=== PATIENT | female | born 1990 | race Caucasian/White ===

== ENCOUNTER 2018-11-14 23:05 | Emergency (ER) | payer OTHER ==
[~2018-11-14] VITALS: Ht 170.2 cm; Wt 111.1 kg
[~2018-11-14 23:05] MED LIST: AZIT500 PO; BCP'S; CEPH500 PO; CYCL10 PO; HYDACE5 PO; HYDHCL25 PO; LORA10ER PO; MECL25 PO; MEDR150I; MIRENA IUD; MULVITMINE; NAPR500 PO; [UNRECOGNIZED DRUG - REMARK]
[2018-11-14] MEDS ORDERED: IBUP400 PO (23:18)
[2018-11-14] MEDS ORDERED: Excedrin Extra1 EACH PO (23:19)
[2018-11-15 00:25] LABS: Calcium, Ionized (POC) 1.21 mmol/L (1.10-1.46); Chloride (POC) 107 mmol/L (98-108); Creatinine (POC) 0.7 mg/dL (0.6-1.0); Glucose (ISTAT POC) 101 mg/dL (70-99); Potassium (POC) 3.8 mmol/L (3.5-5.5); Sodium (POC) 140 mmol/L (135-148); Total CO2 (POC) 20 mmol/L (21-32)
[2018-11-15] MEDS ORDERED: LIDO700A20 TOP (01:02)
[2018-11-15] MEDS ORDERED: Robaxin-750750 MG PO (01:03)
== END 2018-11-15 01:34 | disposition home or self-care (01) ==
LOC: ER 23:05
PROVIDERS: Physician Assistant
DX: M54.5 Low back pain (principal); K64.4 Residual hemorrhoidal skin tags; Z88.0 Allergy status to penicillin; Z88.5 Allergy status to narcotic agent
CPT/HCPCS: 36415; 72100; 80047; 82272; 85014; 96372; 99283-25; A9270; J1885

== ENCOUNTER 2019-03-12 00:07 | Emergency (ER) | payer OTHER ==
[~2019-03-12] VITALS: Ht 170.2 cm; Wt 108.9 kg
[~2019-03-12 00:07] MED LIST changes: +Excedrin Extra1 EACH PO; +IBUP400 PO; +LIDO700A20 TOP; +Robaxin-750750 MG PO
[2019-03-12 01:39] LABS: BASOPHILS ABSOLUTE AUTO 0.02 K/mm3 (0.00-0.23); BASOPHILS PERCENT AUTO 0 % (0-2); EOSINOPHILS PERCENT AUTO 0 % (0-6); Hematocrit 41.4 % (33.0-51.0); Hemoglobin 14.4 g/dL (11.5-16.0); IMMATURE GRAN ABSOLUTE AUTO 0.01 K/mm3 (0.00-0.10); IMMATURE GRAN PERCENT AUTO 0 % (0-1); LYMPHOCYTES ABSOLUTE AUTO 0.66 K/mm3 (0.84-5.20); LYMPHOCYTES PERCENT AUTO 14 % (21-46); MONOCYTES ABSOLUTE AUTO 0.82 K/mm3 (0.16-1.47); MONOCYTES PERCENT AUTO 18 % (4-13); Mean Corpuscular HGB 32.3 pg (26.0-34.0); Mean Corpuscular HGB Conc 34.8 g/dL (31.5-36.5); Mean Corpuscular Volume 93 fL (80-100); Mean Platelet Volume 10.7 fL (9.1-12.4); NEUTROPHILS ABSOLUTE AUTO 3.06 K/mm3 (1.96-9.15); NEUTROPHILS PERCENT AUTO 67 % (41-73); Platelet Count 178 K/mm3 (150-400); RDW Standard Deviation 40.9 fL (35.1-46.3); Red Blood Cell Count 4.46 M/mm3 (3.80-5.20); White Blood Cell Count 4.57 K/mm3 (4.00-11.30)
[2019-03-12 01:55] LABS: International Normalized Ratio 1.01; Prothrombin Time Results 10.8 Sec (9.7-11.5)
[2019-03-12 01:57] LABS: Alanine Aminotransfer (ALT/SGP 133 U/L (12-78); Albumin, Blood 4.2 g/dL (3.4-5.0); Alk Phos 59 U/L (50-136); Anion Gap 8 mmol/L (6-16); Aspartate Aminotrans (AST/SGOT 80 U/L (12-37); Bilirubin, Total 0.9 mg/dL (0.1-1.0); Blood Urea Nitrogen 16 mg/dL (8-24); Bun/Creatinine Ratio 24.8 (12.0-20.0); CO2, Blood 22 mmol/L (21-32); Calcium, Blood 8.8 mg/dL (8.5-10.1); Chloride, Blood 108 mmol/L (98-108); Creatinine, Blood 0.65 mg/dL (0.40-1.00); Globulin, Blood 4.1 g/dL (2.2-4.0); Glomerular Filtration Rate >60 (60-); Glucose, Blood 117 mg/dL (70-99); Potassium, Blood 3.6 mmol/L (3.5-5.5); Sodium, Blood 138 mmol/L (136-145); Total Protein, Blood 8.3 g/dL (6.4-8.2)
[2019-03-12] MEDS ORDERED: Zithromax250 MG PO (02:05)
[2019-03-13] MEDS ORDERED: ACET500 PO (10:06)
[2019-03-13] MEDS ORDERED: ONDA4ODT MM (11:35)
== END 2019-03-12 02:19 | disposition home or self-care (01) ==
LOC: ER 00:07
PROVIDERS: Emergency Medicine
DX: R04.0 Epistaxis (principal); Z88.0 Allergy status to penicillin; Z88.5 Allergy status to narcotic agent
CPT/HCPCS: 30901; 36415; 80053; 85025; 85610; 96374-59; 99283-25; J2405

== ENCOUNTER 2019-03-13 09:50 | Emergency (ER) | payer OTHER ==
[~2019-03-13] VITALS: Ht 170.2 cm; Wt 108.9 kg
[~2019-03-13 09:50] MED LIST changes: +Zithromax250 MG PO
[2019-03-13] MEDS ORDERED: ACET500 PO (10:06)
[2019-03-13] MEDS ORDERED: ONDA4ODT MM (11:35)
== END 2019-03-13 11:37 | disposition home or self-care (01) ==
LOC: ER 09:50
DX: Z48.00 Encounter for change or removal of nonsurgical wound dressing (principal); Z88.0 Allergy status to penicillin; Z88.5 Allergy status to narcotic agent
CPT/HCPCS: 99282

== ENCOUNTER 2020-09-03 14:43 | Emergency (ER) | payer OTHER ==
[~2020-09-03] VITALS: Ht 170.2 cm; Wt 113.4 kg
[~2020-09-03 14:43] MED LIST changes: +ACET500 PO; +ONDA4ODT MM
[2020-09-03] MEDS ORDERED: Norco 5-325 Ta1 EACH PO (16:40)
[2020-09-03] MEDS ORDERED: IBU600 M1 PO (16:40)
[2020-09-03] MEDS ORDERED: CYCL10 PO (16:40)
== END 2020-09-03 16:44 | disposition home or self-care (01) ==
LOC: ER 14:43
DX: M54.41 Lumbago with sciatica, right side (principal); Z88.0 Allergy status to penicillin; Z88.5 Allergy status to narcotic agent; Z79.899 Other long term (current) drug therapy
CPT/HCPCS: 96372; 99283-25; J1885

== ENCOUNTER 2022-04-28 03:31 | Emergency (ER) | payer OTHER ==
[~2022-04-28] VITALS: Ht 170.2 cm; Wt 124.7 kg
[~2022-04-28 03:31] MED LIST changes: +IBU600 M1 PO; +Norco 5-325 Ta1 EACH PO
[2022-04-28] MEDS ORDERED: ZOLOFT50 MG PO (03:57)
== END 2022-04-28 05:31 | disposition home or self-care (01) ==
LOC: ER 03:31
DX: R04.0 Epistaxis (principal); Z88.0 Allergy status to penicillin; Z88.5 Allergy status to narcotic agent; Z79.899 Other long term (current) drug therapy
CPT/HCPCS: 30901; 87081; 87430; 99283-25; A9270

== ENCOUNTER 2024-02-01 18:21 | Emergency (ER) | payer OTHER ==
[~2024-02-01] VITALS: Ht 170.2 cm; Wt 120.2 kg
[~2024-02-01 18:21] MED LIST changes: +ZOLOFT50 MG PO
[2024-02-01 19:22] LABS: BASOPHILS ABSOLUTE AUTO 0.05 K/mm3 (0.00-0.23); BASOPHILS PERCENT AUTO 1 % (0-2); EOSINOPHILS ABSOLUTE AUTO 0.34 K/mm3 (0.00-0.68); EOSINOPHILS PERCENT AUTO 5 % (0-6); Hematocrit 38.2 % (33.0-51.0); Hemoglobin 12.8 g/dL (11.5-16.0); IMMATURE GRAN ABSOLUTE AUTO 0.01 K/mm3 (0.00-0.10); IMMATURE GRAN PERCENT AUTO 0 % (0-1); LYMPHOCYTES ABSOLUTE AUTO 1.67 K/mm3 (0.84-5.20); LYMPHOCYTES PERCENT AUTO 23 % (21-46); MONOCYTES ABSOLUTE AUTO 0.66 K/mm3 (0.16-1.47); MONOCYTES PERCENT AUTO 9 % (4-13); Mean Corpuscular HGB 28.9 pg (26.0-34.0); Mean Corpuscular HGB Conc 33.5 g/dL (31.5-36.5); Mean Corpuscular Volume 86 fL (80-100); Mean Platelet Volume 9.8 fL (9.1-12.4); NEUTROPHILS ABSOLUTE AUTO 4.52 K/mm3 (1.96-9.15); NEUTROPHILS PERCENT AUTO 62 % (41-73); Platelet Count 282 K/mm3 (150-400); RDW Coefficient Variation 13.5 % (11.7-14.2); RDW Standard Deviation 42.3 fL (35.1-46.3); Red Blood Cell Count 4.43 M/mm3 (3.80-5.20); White Blood Cell Count 7.25 K/mm3 (4.00-11.30)
[2024-02-01 19:46] LABS: Albumin, Blood 3.7 g/dL (3.4-5.0); Albumin/Globulin Ratio 0.8 (0.8-1.8); Bilirubin, Total 1.2 mg/dL (0.1-1.0); Bun/Creatinine Ratio 19.6 (12.0-20.0); Calcium, Blood 8.9 mg/dL (8.5-10.1); Creatinine, Blood 0.56 mg/dL (0.40-1.00); Globulin, Blood 4.5 g/dL (2.2-4.0); Potassium, Blood 4.5 mmol/L (3.5-5.5); Total Protein, Blood 8.2 g/dL (6.4-8.2)
[2024-02-01 21:15] VITALS: BP 159/85
== END 2024-02-01 21:10 | disposition home or self-care (01) ==
LOC: ER 18:21
PROVIDERS: Student in an Organized Health Care Education/Training Program
DX: R55 Syncope and collapse (principal); J45.909 Unspecified asthma, uncomplicated; Z88.0 Allergy status to penicillin; Z88.5 Allergy status to narcotic agent
CPT/HCPCS: 71046; 80053; 84484; 84703; 85025; 93005; 93010; 99285-25